=== PATIENT | female | born 1940 | race Caucasian/White ===

== ENCOUNTER → 2016-09-26 | Outpatient (CLI) | payer MEDICARE, OTHER ==
[~2016-09-26] MED LIST: ALBI50PE SQ; ALBU8HFA4 IH; AMLO-511 PO; ASPI-1093 PO; ATOR20TA86 PO; CARV25 PO; CLON.1 PO; CLOP75 PO; DICL4100G TP; DULO60CA44 PO; FURO20 PO; HYDR25TA84 PO; INSLAN SQ; INSU10VI3 SQ; LEVO150 PO; LORA10TA7 PO; MIRAUD PO; REGADENOSON 0.4 MG/5 ML PF SYRINGE IVP ONE; TIOT185 IH; VALS160T2 PO; VITAD1000 PO
[2016-09-26 08:50] VITALS: BP 172/88
[2016-09-26 10:01] VITALS: BP 167/85
== END | disposition home or self-care (01) ==
LOC: CARDMN 13:30
PROVIDERS: ATTEND Internal Medicine Cardiovascular Disease
DX: I25.9 Chronic ischemic heart disease, unspecified (principal); I50.1 Left ventricular failure, unspecified; I08.1 Rheumatic disorders of both mitral and tricuspid valves
CPT/HCPCS: 78452; 93017; 93306

== ENCOUNTER → 2016-11-10 | Outpatient (CLI) | payer MEDICARE, OTHER ==
[~2016-11-10] MED LIST changes: -INSU10VI3 SQ; -LORA10TA7 PO; -REGADENOSON 0.4 MG/5 ML PF SYRINGE IVP ONE
== END | disposition home or self-care (01) ==
LOC: RESP 11:27
PROVIDERS: ATTEND Internal Medicine Critical Care Medicine
DX: J44.9 Chronic obstructive pulmonary disease, unspecified (principal)
CPT/HCPCS: 94010; 94726; 94727; 94729

== ENCOUNTER → 2017-07-27 | Outpatient (CLI) | payer MEDICARE, MEDICAID ==
[~2017-07-27] VITALS: Ht 165.1 cm; Wt 102.0 kg
[~2017-07-27] MED LIST changes: -ASPI-1093 PO; +ASPI81TA39 PO; +CLON-570 PO; -CLON.1 PO
[2017-07-27 11:16] VITALS: BP 180/88
== END | disposition home or self-care (01) ==
LOC: SRCNTR 10:48
PROVIDERS: ATTEND Internal Medicine Critical Care Medicine
DX: R05 Cough (principal); R06.2 Wheezing; K21.9 Gastro-esophageal reflux disease without esophagitis; E11.9 Type 2 diabetes mellitus without complications; E03.9 Hypothyroidism, unspecified; I10 Essential (primary) hypertension; I25.10 Atherosclerotic heart disease of native coronary artery without angina pectoris
CPT/HCPCS: G0463

== ENCOUNTER 2018-07-10 11:47 | Emergency (ER) | payer MEDICARE, OTHER ==
[~2018-07-10] VITALS: Ht 165.1 cm; Wt 102.3 kg
[~2018-07-10 11:47] MED LIST changes: -CLOP75 PO; +CLOP75TA3 PO
[2018-07-10 12:30] LABS: GLUCOSE,POINT OF CARE 236 MG/DL (70-110)
[2018-07-10 13:46] VITALS: BP 129/60
== END 2018-07-10 13:51 | disposition home or self-care (01) ==
LOC: EMS 11:53
DX: S80.02XA Contusion of left knee, initial encounter (principal); I11.0 Hypertensive heart disease with heart failure; I50.9 Heart failure, unspecified; E11.9 Type 2 diabetes mellitus without complications; E78.00 Pure hypercholesterolemia, unspecified; Z79.4 Long term (current) use of insulin; Z79.01 Long term (current) use of anticoagulants; Z79.82 Long term (current) use of aspirin; Z79.899 Other long term (current) drug therapy; W06.XXXA Fall from bed, initial encounter; Y93.89 Activity, other specified; Y92.89 Other specified places as the place of occurrence of the external cause; Y99.8 Other external cause status

== ENCOUNTER → 2018-08-27 | Outpatient (CLI) | payer MEDICARE, OTHER ==
[2018-08-27 16:56] LABS: BASOPHILS % (AUTO) 0.4 % (0.0-2.0); EOSINOPHILS % (AUTO) 3.8 % (1.0-6.0); HEMATOCRIT 34.3 % (36-46); HEMOGLOBIN 11.1 g/dL (12.0-16.0); LYMPHOCYTES % (AUTO) 27.3 % (22.0-44.0); MEAN CORPUSCULAR HEMOGLOBIN 28.4 pg (26.0-34.0); MEAN CORPUSCULAR HGB CONC 32.4 G/dL (31.0-37.0); MEAN CORPUSCULAR VOLUME 88 fL (80-100); MONOCYTES # (AUTO) 0.6 K/uL (0.1-1.0); MONOCYTES % (AUTO) 8.1 % (2.0-9.0); NEUTROPHILS # (AUTO) 4.3 K/uL (1.8-7.7); NEUTROPHILS % (AUTO) 60.4 % (40.0-70.0); PLATELET COUNT (AUTO) 207 K/uL (150-450); RED BLOOD CELL COUNT(AUTO) 3.91 MIL/uL (4.00-5.20); RED CELL DISTRIBUTION WIDTH 14.1 % (11.5-14.5)
[2018-08-27 17:20] LABS: HEMOGLOBIN A1C 9.4 % (4.5-6.2)
[2018-08-27 17:22] LABS: ALBUMIN 3.1 g/dL (3.4-5.0); BILIRUBIN,TOTAL 0.3 mg/dL (0.1-1.0); CALCIUM, TOTAL 9.1 mg/dL (8.8-10.5); CHOL/HDL RATIO 3.4 (3.9-5.7); CREATININE 2.61 mg/dL (0.60-1.30); POTASSIUM 4.9 mmol/L (3.5-5.1); THYROID STIMULATING HORMONE 0.47 uIU/mL (0.36-3.74); TOTAL PROTEIN, SERUM 7.4 g/dL (6.4-8.2)
== END | disposition home or self-care (01) ==
LOC: LABMN 16:39
PROVIDERS: ATTEND Internal Medicine
DX: E78.5 Hyperlipidemia, unspecified (principal); E03.9 Hypothyroidism, unspecified; E11.69 Type 2 diabetes mellitus with other specified complication
CPT/HCPCS: 82043; 82570; 83036; 84443

== ENCOUNTER 2021-10-12 11:12 | Emergency (ER) | payer MEDICARE, OTHER ==
[~2021-10-12] VITALS: Ht 157.5 cm; Wt 91.8 kg
[~2021-10-12 11:12] MED LIST changes: +AMLO-257 PO; -AMLO-511 PO; +CHOL100018 PO; -CLON-570 PO; +CLON0.1T2 PO; -CLOP75TA3 PO; +CLOP75TA60 PO; +DULO-113 PO; -DULO60CA44 PO; -MIRAUD PO; +POLY17PO47 PO; -VITAD1000 PO
[2021-10-12] MEDS ORDERED: ACETAMINOPHEN 500 MG TABLET PO ONE (11:45)
[2021-10-12 16:00] VITALS: BP 139/78
== END 2021-10-12 16:14 | disposition home or self-care (01) ==
LOC: EMS 11:13
DX: S52.122A Displaced fracture of head of left radius, initial encounter for closed fracture (principal); S09.90XA Unspecified injury of head, initial encounter; E11.9 Type 2 diabetes mellitus without complications; E78.00 Pure hypercholesterolemia, unspecified; I11.0 Hypertensive heart disease with heart failure; I50.9 Heart failure, unspecified; W19.XXXA Unspecified fall, initial encounter; Y93.89 Activity, other specified; Y92.89 Other specified places as the place of occurrence of the external cause; Y99.8 Other external cause status
CPT/HCPCS: 29105; 70450; 71046; 72125; 73200; 99284